=== PATIENT | male | born 2000 | race Caucasian/White ===

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

== ENCOUNTER 2019-04-14 13:54 | Emergency (ER) | payer OTHER ==
--- NOTE | 2019-04-14 13:58 | PDOC ---
Rapid Medical Evaluation Medical Evaluation: Allergies Allergy/AdvReac Type Severity Reaction Status Date / Time No Known Allergies Allergy Verified 11/04/18 11:37 I have performed a brief in-person evaluation of this patient. The patient presents with a chief complaint of: R great toe pain x 3 months Pertinent physical exam findings: R ingrown toenail I have ordered the following: Nothing The patient will proceed to the ED for further evaluation. 04/14/19 13:55
[2019-04-14 14:00] VITALS: BP 146/94; PULSE 67; TEMP 98.4; BMI 54.8
--- NOTE | 2019-04-14 14:08 | PDOC ---
History of Present Illness - General Chief Complaint: Ingrown toenail Stated Complaint: RT. TOE PAIN Time Seen by Provider: 04/14/19 13:55 History Source: Patient - History of Present Illness Initial Comments: 04/14/19 16:03 Chief complaint: Toe swelling Patient is a healthy 18-year-old male who saw her automatic steel tie adjuster this past week for ingrown toenail which automatic steel tie adjuster did a procedure on to take the nail out from the side of the toe where it was growing into the skin. Patient states there was some pus, and automatic steel tie adjuster any antibiotic. Patient came here today because he has continued swelling and pus. No fever and feels well. GENERAL/CONSTITUTIONAL: No fever, weakness. dizziness HEAD, EYES, EARS, NOSE AND THROAT: No change in vision. No ear pain or discharge. No sore throat. CARDIOVASCULAR: No chest pain RESPIRATORY: No shortness of breath or cough GASTROINTESTINAL: No pain, nausea, vomiting, diarrhea or constipation GENITOURINARY: No dysuria MUSCULOSKELETAL: No neck or back pain SKIN: No rash, + swelling NEUROLOGIC: No headache, vertigo, loss of consciousness, or loss of sensation. GENERAL: The patient is awake, alert, and fully oriented, in no acute distress. HEAD: Normal with no signs of trauma. EYES: Pupils equal, round and reactive to light, sclera anicteric, conjunctiva clear. ENT: pharynx: no erythema, no exudate, uvula midline NECK: supple CHEST: clear, nontender, rr ABD: soft, nontender BACK: no tenderness or signs of injury EXTREMITIES: Right great toe with neural edge of the nail was cut back and away from side, no paronychia, no signs of ingrown nail but toe was mildly erythematous, no streaking but tender, neurovascular intact. Rest of extremities , normal range of motion, no edema. NEUROLOGICAL: Normal speech, normal gait. SKIN: Warm, Dry Past History - Past Medical History Allergies/Adverse Reactions: Allergies Allergy/AdvReac Type Severity Reaction Status Date / Time No Known Allergies Allergy Verified 04/14/19 14:00 Home Medications: Ambulatory Orders Clindamycin Oral Solution [Cleocin Oral Solution -] 150 mg PO Q6H #280 ml Clindamycin Oral Solution [Cleocin Oral Solution -] 300 mg PO Q8H #1 bottle 08/ 02/19 COPD: No Psychiatric Problems: (adhd) - Immunization History Immunization Up to Date: Yes - Suicide/Smoking/Psychosocial Hx Smoking History: Never smoked Have you smoked in the past 12 months: No Hx Alcohol Use: No Drug/Substance Use Hx: No Substance Use Type: None *Physical Exam - Vital Signs Last Vital Signs Temp Pulse Resp BP Pulse Ox 98.4 F 67 16 146/94 98 04/14/19 13:55 04/14/19 13:55 04/14/19 13:55 04/14/19 13:55 04/14/19 13:55 Medical Decision Making - Medical Decision Making 04/14/19 16:06 pt who had ingrown toenail, which was trimmed automatic steel tie adjuster, but still has swelling , and tenderness and redness, no paronychia, no gross cellulitis. Patient was here prior for similar a while back. Was on clindamycin and got better, will do that again. Patient was informed to needs to follow-up with automatic steel tie adjuster this week. Discussed issues, findings, results, applicable medications and treatments and follow-up. All these were understood and all questions were answered *DC/Admit/Observation/Transfer Diagnosis at time of Disposition: Toe infection - Discharge Dispostion Disposition: HOME Condition at time of disposition: Stable Decision to Admit order: No - Prescriptions Prescriptions: Clindamycin Oral Solution [Cleocin Oral Solution -] 300 mg PO Q8H #1 bottle - Referrals - Patient Instructions Additional Instructions: Clean with soap and water 2-3 times daily, apply bacitracin Have her reevaluated if redness, pus, fever or getting worse Followup with your doctor Clindamycin, 20 ML's 3 times a day for 7 days. Take a probiotic with it to help keep your stomach from getting upset or getting diarrhea. Follow-up with your foot doctor early next week - Post Discharge Activity
== END 2019-04-14 14:26 | disposition home or self-care (01) ==
LOC: JERFT 13:54
DX: L08.89 Other specified local infections of the skin and subcutaneous tissue (principal); L60.0 Ingrowing nail
CPT/HCPCS: 99281-25

== ENCOUNTER 2024-01-06 16:21 | Emergency (ER) | payer OTHER ==
[2024-01-06 16:30] VITALS: RESP 16; TEMP 98.5; BMI 33.3
[2024-01-06] MEDS ORDERED: LIDOCAINE HCL 1%, 10 MG/ML (20ML VIAL) ONE (17:27)
[2024-01-06] MEDS ORDERED: morphine SULFATE 4 MG/ML VIAL ONE (17:27)
[2024-01-06] MEDS: morphine CARPU-JECT 4 MG/1 ML DISP.SYRIN IM ONE (17:30)
[2024-01-06] MEDS: LIDOCAINE HCL 1%, 10 MG/ML (50 mL VIAL) SQ ONE (17:30)
[2024-01-06 17:40] VITALS: BP 162/95; PULSE 88
== END 2024-01-06 18:03 | disposition home or self-care (01) ==
LOC: JER 16:21
PROC: 0RSKXZZ Reposition Left Shoulder Joint, External Approach (ICD-10-PCS; principal; 2024-01-06)
PROC: 3E023GC Introduction of Other Therapeutic Substance into Muscle, Percutaneous Approach (ICD-10-PCS; 2024-01-06)
DX: S43.005A Unspecified dislocation of left shoulder joint, initial encounter (principal); X50.1XXA Overexertion from prolonged static or awkward postures, initial encounter
CPT/HCPCS: 73030-TC-LT-FY; 99284-25